=== PATIENT | male | born 1970 | race Hispanic/Latino ===

== ENCOUNTER 2023-10-03 17:12 | Emergency (ER) | payer BC, OTHER ==
[~2023-10-03] VITALS: Ht 170.2 cm; Wt 87.1 kg
[~2023-10-03 17:12] MED LIST: CLINDAMYCIN HC300 MG PO; PEPCID20 MG PO; SILVASORB480 ML TOP; TYLENOL WITH C1 EACH PO
[2023-10-03 17:49] VITALS: PULSE 84; RESP 12; TEMP 97.8; O2SAT 100
[2023-10-03 17:59] LABS: BASOPHILS % 0.2 % (0.0-1.0); EOSINOPHILS # (AUTO) 0.1 (0.0-0.4); EOSINOPHILS % 0.6 % (0.0-6.0); HEMATOCRIT 45.2 % (38.2-49.6); HEMOGLOBIN 15.6 g/dL (14.0-18.0); LYMPHOCYTES # (AUTO) 2.5 (1.0-3.2); MEAN CORPUSCULAR HEMOGLOBIN 29.3 pg (28-32); MEAN CORPUSCULAR HGB CONC 34.5 g/dL (31-35); MEAN CORPUSCULAR VOLUME 84.8 fL (81-99); MONOCYTES # (AUTO) 1.4 (0.2-0.8); MONOCYTES % 8.2 % (4.4-11.3); NEUTROPHILS # (AUTO) 12.7 (2.1-6.9); NEUTROPHILS % 75.6 % (38.7-80.0); PLATELET COUNT 235 x10e3/uL (140-360); RED BLOOD COUNT 5.33 x10e6/uL (4.3-5.7); WHITE BLOOD COUNT 16.77 x10e3/uL (4.8-10.8)
[2023-10-03] MEDS: SODIUM CHLORIDE 0.9% 1000ML 1,000 ML IV STA (18:07)
[2023-10-03 18:13] LABS: CREATINE KINASE 61 IU/L (30-200)
[2023-10-03 18:15] LABS: BILIRUBIN,URINE NEGATIVE (NEGATIVE); CLARITY,URINE SL CLOUDY (CLEAR); COLOR,URINE YELLOW (YELLOW); GLUCOSE, URINE 1+ (NEGATIVE); KETONES,URINE NEGATIVE (NEGATIVE); LEUKOCYTE ESTERASE ,URINE NEGATIVE (NEGATIVE); NITRITE,URINE NEGATIVE (NEGATIVE); PH,URINE 7.5 (5 - 7); PROTEIN,URINE DIPSTICK 2+ (NEGATIVE); URINE UROBILINOGEN 0.2 mg/dL (0.2 - 1)
[2023-10-03 18:16] LABS: ALBUMIN 3.7 g/dL (3.5-5.0); ALBUMIN/GLOBULIN RATIO 0.9 (0.8-2.0); ANION GAP 12.6 mmol/L (8-16); BILIRUBIN,TOTAL 0.8 mg/dL (0.2-1.2); CALCIUM 9.4 mg/dL (8.4-10.2); CREATININE, SERUM 1.01 mg/dL (0.72-1.25); POTASSIUM 3.6 mmol/L (3.5-5.1); TOTAL PROTEIN 7.8 g/dL (6.5-8.1)
[2023-10-03 18:21] LABS: TROPONIN I < 0.001 ng/mL (0-0.300)
[2023-10-03 18:27] LABS: BACTERIA,URINE MODERATE /HPF; WBC,URINE (MAN) 0-5 /HPF (0-5)
[2023-10-03] MEDS: FAMOTIDINE 20 MG/2 ML VIAL IV STA (18:39)
[2023-10-03] MEDS: ONDANSETRON HCL INJ 2MG/ML 2ML 2 MG/ML VIAL IV STA ×2 (18:39→20:18)
[2023-10-03] MEDS ORDERED: IOPAMIDOL 370 MG/ML 100 ML INFUS..BTL INJ ONE (18:50)
[2023-10-03] MEDS: Morphine 4mg INJECTION 4 MG/ML INJ IV STA (20:18)
[2023-10-03] MEDS ORDERED: ULTRAM 50MG50 MG PO (20:21)
[2023-10-03] MEDS ORDERED: ONDANSETRON ODT4 MG PO (20:21)
[2023-10-03] MEDS ORDERED: AMOX TR-K CLV1 EAC2 PO (20:21)
== END 2023-10-03 20:47 | disposition home or self-care (01) ==
LOC: ER 17:45
DX: R11.2 Nausea with vomiting, unspecified (principal); K57.32 Diverticulitis of large intestine without perforation or abscess without bleeding; R10.13 Epigastric pain
CPT/HCPCS: 36415; 74177; 80053; 81001; 82550; 83690; 84484; 85025; 93005; 99284; J2270; J2405; J7030; Q9967